=== PATIENT | female | born 1940 | race Caucasian/White ===

== ENCOUNTER 2016-11-28 18:27 | Emergency (ER) | payer MEDICARE, OTHER ==
[~2016-11-28 18:27] MED LIST: ECOTRIN81 MG PO; PLAVIX75 MG PO
[2016-11-28 21:09] LABS: HEMOGLOBIN 14.9 gm/dl (12.3-15.3); RED BLOOD COUNT 5.23 M/UL (4.00-5.10); WHITE BLOOD COUNT 6.1 K/UL (4.5-11.0)
[2016-11-28 21:35] LABS: BUN/CREATININE RATIO 26 (0-10)
[2017-03-18] MEDS ORDERED: ZYRTEC10 M3 PO (15:12)
[2017-03-18] MEDS ORDERED: OMEPRAZOLE20 M1 PO (15:12)
[2017-03-18] MEDS ORDERED: ENDOCET 7.5-321 EACH PO (15:13)
[2017-03-18] MEDS ORDERED: ZOFRAN 8 MG TAB8 MG PO (15:14)
[2017-03-18] MEDS ORDERED: LISINOPRIL20 MG PO (15:15)
[2017-03-18] MEDS ORDERED: NEURONTIN 300300 MG PO (15:15)
[2017-03-18] MEDS ORDERED: HUMALOG100 UNIT/3 SQ (15:16)
[2017-03-18] MEDS ORDERED: LANTUS SOL100 UNIT/1 SQ (15:17)
[2017-03-18] MEDS ORDERED: LOPRESSOR 25 MG25 MG PO (15:18)
[2017-03-18] MEDS ORDERED: PROTONIX 40 MG40 M1 PO (15:18)
[2017-03-19] MEDS ORDERED: CIPRO500 MG PO (11:53)
== END 2016-11-29 00:35 ==
LOC: ER1 18:27
PROVIDERS: Physician Assistant
DX: R55 Syncope and collapse (principal); R00.0 Tachycardia, unspecified; R47.81 Slurred speech; E11.9 Type 2 diabetes mellitus without complications; I10 Essential (primary) hypertension; I25.810 Atherosclerosis of coronary artery bypass graft(s) without angina pectoris; I25.2 Old myocardial infarction; Z95.1 Presence of aortocoronary bypass graft; Z88.5 Allergy status to narcotic agent
CPT/HCPCS: 36415; 70450; 80053; 82550; 82553; 82962; 83874; 84484; 85025; 93005; 96374; 96375; 99285; J2060; J2405; J2550

== ENCOUNTER → 2016-12-27 | Outpatient (CLI) | payer MEDICARE, OTHER ==
[~2016-12-27] MED LIST changes: +CIPRO500 MG PO; +ENDOCET 7.5-321 EACH PO; +HUMALOG100 UNIT/3 SQ; +LANTUS SOL100 UNIT/1 SQ; +LISINOPRIL20 MG PO; +LOPRESSOR 25 MG25 MG PO; +NEURONTIN 300300 MG PO; +OMEPRAZOLE20 M1 PO; +PROTONIX 40 MG40 M1 PO; +ZOFRAN 8 MG TAB8 MG PO; +ZYRTEC10 M3 PO
== END ==
LOC: LBRF 16:29
DX: E11.65 Type 2 diabetes mellitus with hyperglycemia (principal); E78.5 Hyperlipidemia, unspecified; I10 Essential (primary) hypertension; R53.83 Other fatigue; R32 Unspecified urinary incontinence
CPT/HCPCS: 87086